=== PATIENT | female | born 1965 | race Caucasian/White ===

== ENCOUNTER → 2016-07-24 | Outpatient (CLI) | payer OTHER ==
--- NOTE | 2016-07-24 14:26 | DX ---
PA and Lateral Chest on July 24, 2016 Indication: Fatigue. Comparison: May 19, 2015. Findings: Lungs are clear. Heart and mediastinum are normal. Bones and soft tissues are normal. Impression: No pneumonia.
== END ==
LOC: BMCIMAGING 13:21
PROVIDERS: ATTEND Emergency Medicine
DX: R53.83 Other fatigue (principal)

== ENCOUNTER 2018-02-14 20:37 | Emergency (ER) | payer OTHER ==
[2018-02-14] MEDS ORDERED: ONDANSETRON 4 MG/2 ML VIAL IVP ONE (21:39)
[2018-02-14] MEDS ORDERED: NS 1,000 ML IV ONE (21:39)
[2018-02-14 21:42] LABS: PLATELET COUNT 164 10^3/uL (150-400)
--- NOTE | 2018-02-14 21:45 | EDPHY ---
Addendum entered and electronically signed by Gordy Alfredo MD 02/14/18 23: 19: [id number]: I was asked to go back and see this patient as she also 1 notify me she has umbilical pain. She has focal tenderness in a hard area around her umbilicus. It is not red and swollen. I did review the CT scan there is no stranding or inflammation around this umbilical region. There is a small loop of small bowel in it but no obstruction. She does have some mild tenderness when I press over this umbilical region. I wonder if she has an early umbilical stump infection. I discussed this with her. I discussed that she should use warm compresses 2 to 3 times a day for [address] her on Keflex to see if this helps her with her discomfort. Additionally recommend stool softeners. Additionally went over return precautions. Also refer her to surgery outpatient for follow-up of over bili cul hernia as needed. Original Note: H & P Stated Complaint: MID aBD PAIN, "IT MIGHT BE GAS", SWELLING Source: Patient Exam Limitations: No limitations - Personal History LMP (Females 10-55): Irregular Current Tetanus Diphtheria and Acellular Pertussis (TDAP): No - Medical/Surgical History Hx Asthma: No Hx Chronic Respiratory Disease: No Hx Diabetes: No Hx Cardiac Disease: No Hx Renal Disease: No Hx Cirrhosis: No Hx Alcoholism: No Hx HIV/AIDS: No Hx Splenectomy or Spleen Trauma: No Other PMH: Hypothroid - Family History Significant Family History: No pertinent family hx - Social History Smoking Status: Never smoked Alcohol Use: Sober Drug Use: None Time Seen by Provider: 02/14/18 21:34 HPI/ROS: CHIEF COMPLAINT: Abdominal pain HISTORY OF PRESENT ILLNESS: The patient is a 52-year-old female who comes to the emergency department complaining of periumbilical and left lower quadrant pain. It began with body aches yesterday and now abdominal pain today. Nausea but no vomiting. No constipation. No diarrhea. No blood in her stool. No fevers. No history of abdominal surgeries. No urinary complaints. No vaginal bleeding or discharge. Severity: Moderate Modifying factors: Eating REVIEW OF SYSTEMS: Constitutional: denies: chills, fever, recent illness, recent injury EENTM: denies: blurred vision, double vision, nose congestion Respiratory: denies: cough, shortness of breath Cardiac: denies: chest pain, irregular heart rate, lightheadedness, palpitations Gastrointestinal/Abdominal: See HPI Genitourinary: denies: dysuria, frequency, hematuria, pain Musculoskeletal: denies: joint pain, muscle pain Skin: denies: lesions, rash, jaundice, bruising Neurological: denies: headache, numbness, paresthesia, tingling, dizziness, weakness Hematologic/Lymphatic: denies: blood clots, easy bleeding, easy bruising Immunologic/allergic: denies: HIV/AIDS, transplant 10 systems reviewed and negative except as noted EXAM: GENERAL: Well-appearing, well-nourished and in no acute distress. HEAD: Atraumatic, normocephalic. EYES: Pupils equal round and reactive to light, extraocular movements intact, sclera anicteric, conjunctiva are normal. ENT: TMs normal, nares patent, oropharynx clear without exudates. Moist mucous membranes. NECK: Normal range of motion, supple without lymphadenopathy or JVD. LUNGS: Breath sounds clear to auscultation bilaterally and equal. No wheezes rales or rhonchi. HEART: Regular rate and rhythm without murmurs, rubs or gallops. ABDOMEN: Mild periumbilical left lower quadrant tenderness, no rebound or guarding. BACK: No CVA tenderness, no spinal tenderness, step-offs or deformities EXTREMITIES: Normal range of motion, no pitting or edema. No clubbing or cyanosis. NEUROLOGICAL: Cranial nerves II through XII grossly intact. Normal speech, normal gait. 5/5 strength, normal movement in all extremities, normal sensation , normal reflexes PSYCH: Normal mood, normal affect. SKIN: Warm, dry, normal turgor, no visible rashes or lesions. (Cain Gilbert) Constitutional: Initial Vital Signs Temperature (C) 36.4 C 02/14/18 20:44 Heart Rate 64 02/14/18 20:44 Respiratory Rate 18 02/14/18 20:44 Blood Pressure 124/94 H 02/14/18 20:44 O2 Sat (%) 97 02/14/18 20:44 O2 Delivery Mode Room Air Allergies/Adverse Reactions: ciprofloxacin [From Cipro] Allergy (Verified 02/14/18 20:44) Home Medications: Medication Instructions Recorded Etonogestrel/Ethinyl Estradiol 1 each VAG ONCE 10/01/11 [Nuvaring Vaginal Ring (RX)] Levothyroxine [Synthroid 150 mcg 150 mcg PO DAILY06 10/01/11 (RX)] Cephalexin [Keflex] 500 mg PO Q6H #28 cap 02/14/18 Polyethylene Glycol 3350 [Miralax 17 gm PO DAILY #4 pkt 02/14/18 17 gm (*)] Medical Decision Making ED Course/Re-evaluation: 2256: I was asked to follow-up this CT scan. CT scan abdomen pelvis with IV contrast shows constipation. No evidence of significant diverticulitis. No evidence of free air, no evidence of free fluid. Otherwise no significant inflammatory process seen by Dr. Cloud. (Gordy Alfredo) The patient's lab work is reassuring. CT scan is pending. I suspect a diverticulitis. I will transfer care to Dr. Alfredo shift change. (Cain Gilbert) Differential Diagnosis: Partial list of the Differential diagnosis considered include but were not limited to; diverticulitis, urinary tract infection, constipation and although unlikely based on the history and physical exam, I also considered peptic ulcer disease, biliary disease, appendicitis, kidney stone, ovarian cyst, PID, ovarian torsion. (Cain Gilbert) - Data Points Laboratory Results: Laboratory Results 02/14/18 21:00 02/14/18 21:00 Medications Given: Discontinued Medications Sodium Chloride (Ns) 1,000 mls @ 0 mls/hr IV EDNOW ONE; Wide Open PRN Reason: Protocol Stop: 02/14/18 21:40 Last Admin: 02/14/18 21:47 Dose: 1,000 mls Ondansetron HCl (Zofran) 4 mg IVP EDNOW ONE Stop: 02/14/18 21:40 Last Admin: 02/14/18 21:47 Dose: 4 mg Departure - Departure Disposition: Home, Routine, Self-Care Clinical Impression: Abdominal pain Qualifiers: Abdominal location: lower abdomen, unspecified Qualified Code(s): R10.30 - Lower abdominal pain, unspecified Constipation Qualifiers: Constipation type: unspecified constipation type Qualified Code(s): K59.00 - Constipation, unspecified Condition: Good Instructions: Constipation (ED), Umbilical Hernia (ED), Acute Abdominal Pain ( ED) Additional Instructions: 1. [place] diet. No spicy fatty greasy foods. 2. Return emergency room if there is worsening abdominal pain, fever, vomiting 3. Stool softeners. 4. Warm compresses for 20 min 3 times a day over your umbilical region 5. Antibiotics as prescribed 6. Follow up with surgery as needed. Referrals: Jimbo Rodriguez MD [Medical Doctor] - As per Instructions Sara Gastelum PA [Primary Care Provider] - As per Instructions Prescriptions: Cephalexin [Keflex] 500 mg PO Q6H #28 cap Polyethylene Glycol 3350 [Miralax 17 gm (*)] 17 gm PO DAILY #4 pkt
[2018-02-14] MEDS ORDERED: IOPAMIDOL (ISOVUE-300) 100 ML BTL ONE (22:04)
[2018-02-14 23:32] VITALS: BP 108/60
== END 2018-02-14 23:31 | disposition home or self-care (01) ==
DX: R10.33 Periumbilical pain (principal); K59.00 Constipation, unspecified; E03.9 Hypothyroidism, unspecified; E86.9 Volume depletion, unspecified
CPT/HCPCS: 96374; J2405; Q9967